=== PATIENT | male | born 1940 | race African-American/Black ===

== ENCOUNTER 2022-09-07 09:51 | Inpatient (IN) | payer OTHER ==
[2022-09-07] MEDS ORDERED: IBUPROFEN 600 MG TABLET (FP) PO PRN (10:40)
[2022-09-07] MEDS ORDERED: MAG HYDROX/AL HYDROX/SIMETH 30 ML UNIT-DOSE CUP PO PRN (10:40)
[2022-09-07] MEDS ORDERED: MAGNESIUM HYDROX 2400MG/30ML ORAL SUSPENSION 30 ML CUP PO PRN (10:40)
[2022-09-07] MEDS ORDERED: POLYETHYLENE GLYCOL (HEALTHYLAX) 3350 17 GM PACKET PO PRN (10:40)
[2022-09-07] MEDS ORDERED: NICOTINE 14 MG/24 HOURS TOPICAL PATCH TD PRN (10:40)
[2022-09-07] MEDS ORDERED: guaiFENesin 600 MG TABLET.ER (FP) PO PRN (10:40)
[2022-09-07] MEDS ORDERED: LOPERAMIDE HCL 2 MG CAPSULE PO PRN (10:40)
[2022-09-07] MEDS ORDERED: ACETAMINOPHEN 325 MG TABLET (FP) PO PRN (10:40)
[2022-09-07] MEDS ORDERED: NICOTINE POLACRILEX 2 MG GUM BUC PRN (10:40)
[2022-09-07] MEDS ORDERED: BENZONATATE 200 MG CAPSULE PO PRN (10:40)
[2022-09-07] MEDS ORDERED: BISMUTH SUBSALICYLATE 524 MG/30 ML PO PRN (10:40)
[2022-09-07] MEDS ORDERED: BENZOCAINE/MENTHOL (CHLORASEPTIC ) LOZENGE MM PRN (10:40)
[2022-09-07] MEDS ORDERED: IBUPROFEN 400 MG TABLET (FP) PO PRN (10:40)
[2022-09-07] MEDS ORDERED: ONDANSETRON *ODT* 4 MG TABLET SL PRN (10:40)
[2022-09-07] MEDS ORDERED: LORazepam 1 MG TABLET PO PRN (10:40)
[2022-09-07] MEDS ORDERED: LISINOPRIL 10 MG TABLET ONE (11:38)
[2022-09-07] MEDS: LISINOPRIL 20 MG TABLET PO SCH (11:46)
[2022-09-07 14:31] LABS: HEMATOCRIT 31.9 % (35.4-49); HEMOGLOBIN 10.7 GM/dL (11.7-16.9); MCH 29.3 pg (25.7-33.7); MCHC 33.6 g/dl (32.0-35.9); MEAN CELL VOLUME 87.1 fl (80-96); MEAN PLT VOLUME 8.9 fl (7.5-11.1); PLATELET COUNT 298 10^3/uL (134-434); RBC 3.66 M/mm3 (4.00-5.60); RDW 18.1 % (11.9-15.9); WHITE BLOOD COUNT 6.5 K/mm3 (4.0-10.0)
[2022-09-07 14:38] LABS: ALBUMIN 4.1 g/dl (3.4-5.0); BLOOD UREA NITROGEN 14.8 mg/dL (7-18)
[2022-09-07 14:42] LABS: TOT PROT 8.1 g/dl (6.4-8.2)
[2022-09-07 14:43] LABS: BILIRUBIN,TOTAL 1.2 mg/dL (0.2-1)
[2022-09-07] MEDS: LORazepam 1 MG TABLET PO SCH ×2 (18:24→22:51)
[2022-09-07 20:47] VITALS: RESP 16
[2022-09-07] MEDS: OMEGA-3 ACID ETHYL ESTERS (FATTY-ACIDS) 1 GM CAPSULE (FP) PO SCH (22:52)
[2022-09-07] MEDS: TERAZOSIN HCL 1 MG CAPSULE PO SCH (22:52)
[2022-09-07] MEDS: MELATONIN 5 MG TABLETS PO SCH (22:53)
[2022-09-07] MEDS: THIAMINE HCL 100 MG TABLET (FP) PO SCH (22:53)
[2022-09-08] MEDS: LORazepam 1 MG TABLET PO SCH ×4 (05:46→23:23)
[2022-09-08 09:13] VITALS: BP 148/46; PULSE 60; TEMP 97.5
[2022-09-08] MEDS ORDERED: CHOLECALCIFEROL (VIT D3) 1,000 UNIT (25 MCG) TABLET PO SCH (10:00)
[2022-09-08] MEDS ORDERED: PRENATAL VITAMINS W/ FOLIC ACID TABLET (FP) PO SCH (10:00)
[2022-09-08] MEDS: LISINOPRIL 20 MG TABLET PO SCH (10:41)
[2022-09-08] MEDS: OMEGA-3 ACID ETHYL ESTERS (FATTY-ACIDS) 1 GM CAPSULE (FP) PO SCH ×2 (10:41→23:23)
[2022-09-08] MEDS: TERAZOSIN HCL 1 MG CAPSULE PO SCH (23:22)
[2022-09-08] MEDS: MELATONIN 5 MG TABLETS PO SCH (23:23)
[2022-09-08] MEDS: THIAMINE HCL 100 MG TABLET (FP) PO SCH (23:23)
[2022-09-09] MEDS ORDERED: LORazepam 1 MG TABLET PO SCH (05:00)
[2022-09-10] MEDS ORDERED: LORazepam 0.5 MG TABLET PO PRN
[2022-09-10] MEDS ORDERED: LORazepam 0.5 MG TABLET PO SCH (05:00)
[2022-09-11] MEDS ORDERED: LORazepam 0.5 MG TABLET PO ONE (05:00)
== END 2022-09-08 22:50 | disposition short-term general hospital (02) | DRG 897 ==
LOC: YASAS 09:51 → Y3N 11:32
PROVIDERS: ADMIT Allergy & Immunology; ATTEND Surgery
PROC: HZ2ZZZZ Detoxification Services for Substance Abuse Treatment (ICD-10-PCS; principal; 2022-09-07)
DX: F10.230 Alcohol dependence with withdrawal, uncomplicated (principal); F17.210 Nicotine dependence, cigarettes, uncomplicated; I11.0 Hypertensive heart disease with heart failure; I50.9 Heart failure, unspecified; N40.0 Benign prostatic hyperplasia without lower urinary tract symptoms; M25.512 Pain in left shoulder; R63.4 Abnormal weight loss; Z68.20 Body mass index [BMI] 20.0-20.9, adult
CPT/HCPCS: 36415; 80053; 82140; 85027; 86593; 86780; 87811; 93005; 93010; C9803-CS; U0003; U0005

== ENCOUNTER 2022-09-08 10:51 | Inpatient (IN) | payer OTHER ==
[2022-09-08] MEDS ORDERED: FOLIC ACID INJECTION - 1 MG, THIAMINE HCL 100 MG, MULTIVIT INJECTION ADULT 10 ML in SOD... IVPB ONE ×2 (11:42→17:00)
[2022-09-08 13:09] LABS: BASO % 1.1 % (0-2.0); EOS % 2.2 % (0-4.5); HEMATOCRIT 33.6 % (35.4-49); HEMOGLOBIN 11.1 GM/dL (11.7-16.9); LYMPH % 17.2 % (8-40); MCH 28.6 pg (25.7-33.7); MCHC 32.9 g/dl (32.0-35.9); MEAN PLT VOLUME 8.4 fl (7.5-11.1); NEUT % 65.5 % (42.8-82.8); PLATELET COUNT 264 10^3/uL (134-434); RBC 3.87 M/mm3 (4.00-5.60); RDW 17.9 % (11.9-15.9); WHITE BLOOD COUNT 5.8 K/mm3 (4.0-10.0)
[2022-09-08 13:16] LABS: INR 1.02 (0.83-1.09); PROTHROMBIN TIME (PATIENT) 11.8 SEC (9.7-13.0)
[2022-09-08 13:19] LABS: ACTIVATED PTT 28.1 SECONDS (25.2-36.5)
[2022-09-08 13:33] LABS: POTASSIUM 4.7 mmol/L (3.5-5.1)
[2022-09-08 13:35] LABS: ALBUMIN 3.9 g/dl (3.4-5.0)
[2022-09-08 13:36] LABS: MAGNESIUM 2.4 mg/dL (1.8-2.4)
[2022-09-08 13:40] LABS: BILIRUBIN,TOTAL 0.8 mg/dL (0.2-1); TOT PROT 8.1 g/dl (6.4-8.2)
[2022-09-08] MEDS ORDERED: hydrALAZINE HCL 20 MG/ML VIAL IVPUSH ONE (15:36)
[2022-09-08] MEDS ORDERED: HALOPERIDOL LACTATE 5 MG/ML IM ONE ×2 (15:45)
[2022-09-08] MEDS ORDERED: hydrALAZINE HCL 20 MG/ML VIAL ONE (16:01)
[2022-09-08] MEDS ORDERED: THIAMINE HCL 200 MG/2 ML VIAL IVPB ONE (16:30)
[2022-09-08] MEDS ORDERED: LORazepam 2 MG/ML SDV VIAL IM ONE (17:38)
[2022-09-09 08:20] LABS: BASO % 0.5 % (0-2.0); EOS % 1.6 % (0-4.5); HEMATOCRIT 30.9 % (35.4-49); HEMOGLOBIN 10.4 GM/dL (11.7-16.9); LYMPH % 16.8 % (8-40); MCH 29.3 pg (25.7-33.7); MCHC 33.5 g/dl (32.0-35.9); MEAN CELL VOLUME 87.3 fl (80-96); MEAN PLT VOLUME 9.6 fl (7.5-11.1); MONO % 11.4 % (3.8-10.2); NEUT % 69.7 % (42.8-82.8); PLATELET COUNT 277 10^3/uL (134-434); RBC 3.54 M/mm3 (4.00-5.60); RDW 17.5 % (11.9-15.9); WHITE BLOOD COUNT 5.6 K/mm3 (4.0-10.0)
[2022-09-09 08:35] LABS: POTASSIUM 4.1 mmol/L (3.5-5.1)
[2022-09-09 08:41] LABS: CALCIUM 9.4 mg/dL (8.5-10.1)
[2022-09-09 08:42] LABS: ALBUMIN 3.2 g/dl (3.4-5.0); BLOOD UREA NITROGEN 12.1 mg/dL (7-18); MAGNESIUM 1.7 mg/dL (1.8-2.4)
[2022-09-09 08:45] LABS: CREATININE 0.9 mg/dL (0.55-1.3); PHOSPHOROUS 3.2 mg/dL (2.5-4.9)
[2022-09-09 08:46] LABS: TOT PROT 6.8 g/dl (6.4-8.2)
[2022-09-09] MEDS: LISINOPRIL 10 MG TABLET PO SCH (09:33)
[2022-09-09] MEDS: THIAMINE HCL 200 MG/2 ML VIAL IVPB SCH (09:33)
[2022-09-09] MEDS: ENOXAPARIN NA (PORCINE) 40 MG/0.4 ML DISP.SYRIN SQ SCH (09:33)
[2022-09-09] MEDS ORDERED: MAGNESIUM SULFATE IN WATER 2 GM/50 ML IVPB IVPB ONE (13:44)
[2022-09-09] MEDS: DONEPEZIL HCL 5 MG TABLET (FP) PO SCH (22:08)
[2022-09-10 08:37] LABS: POTASSIUM 4.2 mmol/L (3.5-5.1)
[2022-09-10 08:43] LABS: CALCIUM 9.5 mg/dL (8.5-10.1)
[2022-09-10 08:44] LABS: BLOOD UREA NITROGEN 11.3 mg/dL (7-18)
[2022-09-10 08:47] LABS: CREATININE 0.9 mg/dL (0.55-1.3)
[2022-09-10] MEDS: THIAMINE HCL 200 MG/2 ML VIAL IVPB SCH (10:43)
[2022-09-10] MEDS: LISINOPRIL 10 MG TABLET PO SCH (10:43)
[2022-09-10] MEDS: ENOXAPARIN NA (PORCINE) 40 MG/0.4 ML DISP.SYRIN SQ SCH (10:43)
[2022-09-10 10:45] LABS: HIV INTERPRETATION NEGATIVE (NEGATIVE)
[2022-09-10] MEDS: LORazepam 2 MG/ML SDV VIAL IVPUSH PRN ×2 (12:35→22:07)
[2022-09-10] MEDS: DONEPEZIL HCL 5 MG TABLET (FP) PO SCH (22:07)
[2022-09-11] MEDS ORDERED: LORazepam 1 MG TABLET PO ONE (06:20)
[2022-09-11] MEDS ORDERED: LORazepam 2 MG/ML SDV VIAL IM PRN (08:11)
[2022-09-11] MEDS: ENOXAPARIN NA (PORCINE) 40 MG/0.4 ML DISP.SYRIN SQ SCH (12:23)
[2022-09-11] MEDS: LIDOCAINE 5% TOPICAL PATCH TP SCH (12:24)
[2022-09-11] MEDS: amLODIPine BESYLATE 10 MG TABLET (FP) PO SCH (12:24)
[2022-09-11] MEDS: LISINOPRIL 10 MG TABLET PO SCH (12:24)
[2022-09-11] MEDS: THIAMINE HCL 200 MG/2 ML VIAL IVPB SCH (12:27)
[2022-09-11] MEDS: DONEPEZIL HCL 5 MG TABLET (FP) PO SCH ×2 (12:55→21:08)
[2022-09-11] MEDS: LIDOCAINE PATCH REMOVAL MC SCH (21:08)
[2022-09-11] MEDS ORDERED: OLANZapine 5 MG TABLET PO SCH (22:00)
[2022-09-11] MEDS ORDERED: QUEtiapine FUMARATE 25 MG TABLET PO SCH (22:00)
[2022-09-12] MEDS: DONEPEZIL HCL 5 MG TABLET (FP) PO SCH ×2 (09:49→21:22)
[2022-09-12] MEDS: amLODIPine BESYLATE 10 MG TABLET (FP) PO SCH (09:49)
[2022-09-12] MEDS: LIDOCAINE 5% TOPICAL PATCH TP SCH (09:50)
[2022-09-12] MEDS: ENOXAPARIN NA (PORCINE) 40 MG/0.4 ML DISP.SYRIN SQ SCH (09:50)
[2022-09-12] MEDS: LISINOPRIL 10 MG TABLET PO SCH (09:50)
[2022-09-12] MEDS: THIAMINE HCL 100 MG TABLET (FP) PO SCH ×2 (11:31→21:22)
[2022-09-12] MEDS: PANTOPRAZOLE 40 MG TABLET PO SCH (11:31)
[2022-09-12] MEDS ORDERED: OLANZapine 2.5 MG TABLET PO SCH (11:48)
[2022-09-12] MEDS: ATORVASTATIN CA 80 MG TABLET (FP) PO SCH (21:22)
[2022-09-12] MEDS: OLANZapine 2.5 MG TABLET PO SCH (21:22)
[2022-09-12] MEDS: LIDOCAINE PATCH REMOVAL MC SCH (21:22)
[2022-09-13 07:07] LABS: BASO % 0.6 % (0-2.0); EOS % 2.9 % (0-4.5); HEMATOCRIT 28.6 % (35.4-49); HEMOGLOBIN 9.7 GM/dL (11.7-16.9); LYMPH % 19.9 % (8-40); MCH 29.6 pg (25.7-33.7); MEAN CELL VOLUME 86.9 fl (80-96); MEAN PLT VOLUME 8.9 fl (7.5-11.1); MONO % 15.1 % (3.8-10.2); NEUT % 61.5 % (42.8-82.8); PLATELET COUNT 326 10^3/uL (134-434); RBC 3.29 M/mm3 (4.00-5.60); WHITE BLOOD COUNT 5.1 K/mm3 (4.0-10.0)
[2022-09-13 07:22] LABS: CALCIUM 9.3 mg/dL (8.5-10.1)
[2022-09-13 07:24] LABS: ALBUMIN 3.2 g/dl (3.4-5.0); BLOOD UREA NITROGEN 18.2 mg/dL (7-18)
[2022-09-13 07:28] LABS: BILIRUBIN,TOTAL 0.4 mg/dL (0.2-1); TOT PROT 6.7 g/dl (6.4-8.2)
[2022-09-13] MEDS: LIDOCAINE 5% TOPICAL PATCH TP SCH (11:42)
[2022-09-13] MEDS: ENOXAPARIN NA (PORCINE) 40 MG/0.4 ML DISP.SYRIN SQ SCH (11:43)
[2022-09-13] MEDS: PANTOPRAZOLE 40 MG TABLET PO SCH (11:44)
[2022-09-13] MEDS: ASPIRIN COATED 81 MG TABLET.EC PO SCH (11:44)
[2022-09-13] MEDS: HYDROCHLOROTHIAZIDE 12.5 MG CAPSULE (FP) PO SCH (11:44)
[2022-09-13] MEDS: amLODIPine BESYLATE 5 MG TABLET (FP) PO SCH (11:44)
[2022-09-13] MEDS: LISINOPRIL 10 MG TABLET PO SCH (11:44)
[2022-09-13] MEDS: CLOPIDOGREL BISULFATE 75 MG TABLET (FP) PO SCH (11:44)
[2022-09-13] MEDS: FERROUS SO4 325 MG TABLET (FP) PO SCH (11:45)
[2022-09-13] MEDS: THIAMINE HCL 100 MG TABLET (FP) PO SCH ×2 (11:45→22:14)
[2022-09-13] MEDS: ATORVASTATIN CA 80 MG TABLET (FP) PO SCH (22:14)
[2022-09-13] MEDS: DONEPEZIL HCL 5 MG TABLET (FP) PO SCH (22:14)
[2022-09-13] MEDS: OLANZapine 2.5 MG TABLET PO SCH (22:15)
[2022-09-13] MEDS: LIDOCAINE PATCH REMOVAL MC SCH (22:16)
[2022-09-14] MEDS: ASPIRIN COATED 81 MG TABLET.EC PO SCH (10:23)
[2022-09-14] MEDS: amLODIPine BESYLATE 5 MG TABLET (FP) PO SCH (10:24)
[2022-09-14] MEDS: FERROUS SO4 325 MG TABLET (FP) PO SCH (10:24)
[2022-09-14] MEDS: HYDROCHLOROTHIAZIDE 12.5 MG CAPSULE (FP) PO SCH (10:24)
[2022-09-14] MEDS: CLOPIDOGREL BISULFATE 75 MG TABLET (FP) PO SCH (10:24)
[2022-09-14] MEDS: LISINOPRIL 10 MG TABLET PO SCH (10:25)
[2022-09-14] MEDS: ENOXAPARIN NA (PORCINE) 40 MG/0.4 ML DISP.SYRIN SQ SCH (10:25)
[2022-09-14] MEDS: THIAMINE HCL 100 MG TABLET (FP) PO SCH ×2 (10:25→21:38)
[2022-09-14] MEDS: PANTOPRAZOLE 40 MG TABLET PO SCH (10:25)
[2022-09-14] MEDS: LIDOCAINE 5% TOPICAL PATCH TP SCH (10:26)
[2022-09-14] MEDS: DONEPEZIL HCL 5 MG TABLET (FP) PO SCH (21:38)
[2022-09-14] MEDS: ATORVASTATIN CA 80 MG TABLET (FP) PO SCH (21:38)
[2022-09-14] MEDS: OLANZapine 2.5 MG TABLET PO SCH (21:39)
[2022-09-14] MEDS ORDERED: MELATONIN 5 MG TABLETS PO SCH (22:00)
[2022-09-14] MEDS: LIDOCAINE PATCH REMOVAL MC SCH (22:43)
[2022-09-14 22:50] VITALS: RESP 18
[2022-09-15] MEDS ORDERED: OLANZapine 10 MG TABLET PO SCH (08:42)
[2022-09-15] MEDS: LIDOCAINE 5% TOPICAL PATCH TP SCH (09:49)
[2022-09-15] MEDS: amLODIPine BESYLATE 5 MG TABLET (FP) PO SCH (09:50)
[2022-09-15] MEDS: CLOPIDOGREL BISULFATE 75 MG TABLET (FP) PO SCH (09:50)
[2022-09-15] MEDS: THIAMINE HCL 100 MG TABLET (FP) PO SCH (09:50)
[2022-09-15] MEDS: LISINOPRIL 10 MG TABLET PO SCH (09:50)
[2022-09-15] MEDS: ASPIRIN COATED 81 MG TABLET.EC PO SCH (09:50)
[2022-09-15] MEDS: HYDROCHLOROTHIAZIDE 12.5 MG CAPSULE (FP) PO SCH (09:50)
[2022-09-15] MEDS: ENOXAPARIN NA (PORCINE) 40 MG/0.4 ML DISP.SYRIN SQ SCH (09:50)
[2022-09-15] MEDS: PANTOPRAZOLE 40 MG TABLET PO SCH (09:50)
[2022-09-15] MEDS: FERROUS SO4 325 MG TABLET (FP) PO SCH (09:50)
[2022-09-15] MEDS ORDERED: MULTIVITAMINS (DAILY MVI) TABLET (FP) PO SCH (10:00)
[2022-09-15 10:04] VITALS: BP 142/49; PULSE 68; TEMP 97.6
[2022-09-15] MEDS ORDERED: QUEtiapine FUMARATE 25 MG TABLET PO ONE (12:09)
== END 2022-09-15 13:45 | DRG 897 ==
LOC: JER 10:51 → JERBED 13:31 → J7W 18:50
PROVIDERS: ADMIT Internal Medicine; ATTEND Internal Medicine
PROC: HZ2ZZZZ Detoxification Services for Substance Abuse Treatment (ICD-10-PCS; principal; 2022-09-08)
DX: F10.232 Alcohol dependence with withdrawal with perceptual disturbance (principal); R44.3 Hallucinations, unspecified; E51.2 Wernicke's encephalopathy; E87.8 Other disorders of electrolyte and fluid balance, not elsewhere classified; I11.0 Hypertensive heart disease with heart failure; I50.9 Heart failure, unspecified; F17.200 Nicotine dependence, unspecified, uncomplicated; R74.01 Elevation of levels of liver transaminase levels; R45.1 Restlessness and agitation; F03.90 Unspecified dementia, unspecified severity, without behavioral disturbance, psychotic disturbance, mood disturbance, and anxiety; I73.9 Peripheral vascular disease, unspecified; K21.9 Gastro-esophageal reflux disease without esophagitis; N40.0 Benign prostatic hyperplasia without lower urinary tract symptoms; E78.5 Hyperlipidemia, unspecified
CPT/HCPCS: 36415; 70450-TC; 72125-TC; 72170-TC-FY; 73030-TC-LT-FY; 73060-TC-LT-FY; 80048; 80053; 82140; 82607; 82728; 82746; 83540; 83550; 83735; 84100; 84436; 84443; 85025; 85610; 85730; 87389; 93005; 93010; 97116-GP; 97161-GP; 99285-25; C9803-CS; U0003; U0005